=== PATIENT | female | born 1945 | race Caucasian/White ===

== ENCOUNTER 2018-06-23 11:09 | Inpatient (IN) | payer MEDICARE, BC ==
[~2018-06-23] VITALS: Ht 167.6 cm; Wt 86.0 kg
[2018-06-23] VITALS (7 sets, daily range): BP systolic 127–159; BP diastolic 40–79
[~2018-06-23 11:09] MED LIST: ASPI81TA45 PO; ATOR-2 PO; CARV12.52 PO; CARV25TA12 PO; CLOP75TA PO; FERR324T8 PO; ISOS20TA3 PO; LEVO125T5 PO; LISI-167 PO; MAGN250T8 PO; METH4TAB2 PO; PANT40TA5 PO; POTA10TA11 PO
[2018-06-23] MEDS ORDERED: SODIUM CHLORIDE 0.9% 1,000ML IVBOLUS ONE (11:30)
[2018-06-23] MEDS ORDERED: PLEASE ENTER HEIGHT AND WEIGHT MC SCH (11:30)
[2018-06-23] MEDS ORDERED: SODIUM CHLORIDE FLUSH 10ML SYR IVF ONE (11:30)
[2018-06-23] MEDS ORDERED: PANTOPRAZOLE 80 MG in SODIUM CHLORIDE 0.9% 50 ML IVPB ONE (11:40)
[2018-06-23] MEDS ORDERED: PANTOPRAZOLE 80 MG in SODIUM CHLORIDE 0.9% 100 ML IV SCH (11:40)
[2018-06-23 11:47] LABS: BASOPHILS # (AUTO) 0.06 x10^3/uL (0-0.1); BASOPHILS % (AUTO) 1 % (0-1); EOSINOPHILS % (AUTO) 2 % (1-7); LYMPHOCYTES # (AUTO) 2.62 x10^3/uL (1-3.4); LYMPHOCYTES % (AUTO) 21 % (22-44); MD NO; MEAN CORPUSCULAR HEMOGLOBIN 30.3 pg (27.0-34.8); MEAN CORPUSCULAR HGB CONC 33.6 g/dL (32.4-35.8); MEAN CORPUSCULAR VOLUME 90.1 fL (80-100); MEAN PLATELET VOLUME 8.7 fL (7.4-10.4); MONOCYTES # (AUTO) 0.84 x10^3/uL (0.2-0.8); MONOCYTES % (AUTO) 7 % (2-9); NEUTROPHILS # (AUTO) 8.84 x10^3/uL (1.8-6.8); NEUTROPHILS % (AUTO) 70 % (42-75); PLATELET COUNT 238 x10^3/uL (130-400); RED BLOOD COUNT 3.15 x10^6/uL (3.82-5.3); RED CELL DISTRIBUTION WIDTH 13.7 % (9.6-15.2)
--- NOTE | 2018-06-23 11:54 | NUR ---
BEDSIDE REPORT FROM BLANCA LOPEZ, PT CARE ASSUMED AT THIS TIME. PT MOVED TO TRAUMA 3 PER MD SPARKS REQUEST, PT ON ALL MONITORS, FRESH LINENS. PT HAD GROSSLY POSITIVE HEMOCCULT, THIS RN AT BEDSIDE TO GARCIA
[2018-06-23 11:57] LABS: ALANINE AMINOTRANSFERASE 13 U/L (12-78); ALBUMIN 2.4 g/dL (3.4-5.0); ANION GAP 8 mmol/L (5-15); CALCIUM 8.5 mg/dL (8.5-10.1); CHLORIDE 113 mmol/L (98-107); CREATININE 1.15 mg/dL (0.55-1.02)
[2018-06-23 11:58] LABS: ALKALINE PHOSPHATASE 50 U/L (45-117); BILIRUBIN,TOTAL 0.2 mg/dL (0.2-1.0); TOTAL PROTEIN 5.6 g/dL (6.4-8.2)
[2018-06-23] MEDS ORDERED: ONDANSETRON 2MG/ML, 2ML ONE (11:59)
--- NOTE | 2018-06-23 12:07 | NUR ---
MEDICATION ORDERED FROM PHARMACY, RN TO CALL PT'S FAMILY SONAM (PT'S SON): ESTEVAN (SONAM'S GIRLFRIEND):
[2018-06-23 12:17] LABS: INTERNATIONAL NORMALIZED RATIO > 12.00 (0.93-1.1); PROTHROMBIN TIME 119.3 Seconds (9.6-11.5)
--- NOTE | 2018-06-23 12:18 | NUR ---
PT TO CT VIA JONH IN NAD AT THIS TIME
[2018-06-23] MEDS ORDERED: PHYTONADIONE 10 MG/ML, 1ML SQ ONE (12:30)
[2018-06-23] MEDS ORDERED: OMNIPAQUE 350 MG/ML, 100ML BOTTLE ONE (12:30)
[2018-06-23] MEDS ORDERED: WARF1TAB PO (12:44)
[2018-06-23] MEDS ORDERED: WARF3TAB PO (12:44)
[2018-06-23] MEDS ORDERED: ONDANSETRON 2MG/ML, 2ML IVPush ONE (13:30)
--- NOTE | 2018-06-23 13:40 | NUR ---
BREAK NOTE: CHITRA BEDOYA, WITH [facility], AT THE BEDSIDE WITH THE PT. FFP IS INFUSING WITHOUT PROBLEMS. PT. REMAINS MONITORED. PLAN OF CARE DISCUSSED WITH THE PT. HOB REMAINS ELEVATED GREATER THAN 30 DEGREES. PT. HAS THE SIDERAILS UP X 2 AND THE CALL LIGHT IN PLACE. RN REMAINS AT THE BEDSIDE. VSS.
--- NOTE | 2018-06-23 14:14 | NUR ---
ct called to request ETA for pt's head CT, Rodolfo states that pt is next. MD Russo will order admit post head CT. Endo scheduled for 1500, endo provider at bedside to discuss procedure w/ pt. Pt's family called & updated on POC per pt's request. 2nd FFP ordered from blood bank. Pt in bed, nad, no needs at this time. WCTM.
--- NOTE | 2018-06-23 14:23 | NUR ---
PT TO CT IN NAD AT THIS TIME
--- NOTE | 2018-06-23 14:45 | NUR ---
PT RETURNED FROM CT IN NAD, AWAITING ENDOSCOPY PRIOR TO TRANSFER TO FLOOR
[2018-06-23] MEDS ORDERED: PROPOFOL 10 MG/ML, 20ML ONE (14:46)
--- NOTE | 2018-06-23 15:43 | NUR ---
MD LEAL & MD SPARKS, RN STEPHANY HAMMOND & DIOR MOON AT BEDSIDE FOR ENDOSCOPY
--- NOTE | 2018-06-23 15:45 | NUR ---
PT'S LEVEL OF CARE SCHANGED TO MAURICE BASILIO RN NOTIFIED
[2018-06-23] MEDS: SODIUM CHLORIDE 0.9% 1,000 ML IV SCH (15:53)
[2018-06-23] MEDS: INSULIN LISPRO 100 UNITS/ML, PEN SQ-INSULIN SCH ×2 (16:00→20:16)
[2018-06-23] MEDS ORDERED: LABETALOL 5MG/ML, 20ML IVPush PRN (16:00)
[2018-06-23] MEDS ORDERED: ENALAPRILAT 1.25 MG/ML, 2ML IVPush PRN (16:00)
[2018-06-23] MEDS ORDERED: morphine SULFATE 10 MG/ML, 1ML IVPush PRN (16:00)
--- NOTE | 2018-06-23 16:00 | NUR ---
Hold on PRBC per MD Livingston until repeat H&H
--- NOTE | 2018-06-23 16:30 | NUR ---
endoscopy completed without complication, per jeremy Álvarez pt had generalized gastritis and no localized point of bleeding to clamp. pt in bed, NAD, asisted onto and off of the bedpan.
[2018-06-23 16:54] LABS: FREE T4 (FREE THYROXINE) 0.9 ng/dL (0.76-1.46)
[2018-06-23] MEDS ORDERED: CEFTRIAXONE PMX 1GM/50ML 50 ML ONE (17:07)
[2018-06-23] MEDS ORDERED: INSULIN LISPRO 100 UNITS/ML, PEN ONE (17:08)
[2018-06-23] MEDS: CEFTRIAXONE PMX 1GM/50ML 50 ML IV SCH (17:15)
--- NOTE | 2018-06-23 17:30 | NUR ---
report to fredrick Mortensen [facility].
[2018-06-23 18:57] LABS: INTERNATIONAL NORMALIZED RATIO 2.18 (0.93-1.1); PROTHROMBIN TIME 22.2 Seconds (9.6-11.5)
[2018-06-23] MEDS: CARVEDILOL 25 MG TABLET PO SCH (20:03)
[2018-06-23] MEDS: ATORVASTATIN 40 MG TABLET PO SCH (20:03)
[2018-06-23] MEDS: DOXYCYCLINE 100 MG in DEXTROSE 5% 250 ML IV SCH (20:05)
[2018-06-23] MEDS: PANTOPRAZOLE 80 MG in SODIUM CHLORIDE 0.9% 100 ML IV SCH (21:54)
[2018-06-24] VITALS (12 sets, daily range): BP systolic 92–135; BP diastolic 50–75
[2018-06-24 02:32] LABS: MICROSCOPIC AUTO
[2018-06-24 02:38] LABS: CULTURE INDICATED? NO
[2018-06-24 04:30] LABS: ALBUMIN 2.4 g/dL (3.4-5.0); ANION GAP 6 mmol/L (5-15); CALCIUM 7.8 mg/dL (8.5-10.1); CHLORIDE 119 mmol/L (98-107)
[2018-06-24 04:34] LABS: ALANINE AMINOTRANSFERASE 18 U/L (12-78); ALKALINE PHOSPHATASE 42 U/L (45-117); BILIRUBIN,TOTAL 0.3 mg/dL (0.2-1.0); CREATININE 1.04 mg/dL (0.55-1.02); TOTAL PROTEIN 5.2 g/dL (6.4-8.2)
[2018-06-24] MEDS: SODIUM CHLORIDE 0.9% 1,000 ML IV SCH (05:17)
[2018-06-24] MEDS: INSULIN LISPRO 100 UNITS/ML, PEN SQ-INSULIN SCH ×4 (07:00→21:00)
[2018-06-24] MEDS: DOXYCYCLINE 100 MG in DEXTROSE 5% 250 ML IV SCH ×2 (07:19→19:33)
[2018-06-24] MEDS: PANTOPRAZOLE 80 MG in SODIUM CHLORIDE 0.9% 100 ML IV SCH ×2 (08:01→18:02)
[2018-06-24] MEDS: SODIUM CHLORIDE 0.45% 1,000 ML IV SCH (08:02)
[2018-06-24] MEDS ORDERED: LEVOTHYROXINE 125 MCG TABLET PO SCH (09:00)
[2018-06-24] MEDS: LEVOTHYROXINE 150 MCG TABLET PO SCH (09:47)
[2018-06-24] MEDS: CARVEDILOL 25 MG TABLET PO SCH ×2 (09:47→19:53)
[2018-06-24] MEDS: ISOSORBIDE MONONITRATE ER 60 MG TABLET PO SCH (09:47)
[2018-06-24] MEDS: LISINOPRIL 10 MG TABLET PO SCH (09:47)
[2018-06-24] MEDS ORDERED: POTASSIUM CHLORIDE 20 MEQ TAB.ER.PRT PO ONE (10:00)
[2018-06-24] MEDS: ACETAMINOPHEN 325 MG TABLET PO PRN (15:16)
[2018-06-24] MEDS: CEFTRIAXONE PMX 1GM/50ML 50 ML IV SCH (17:17)
[2018-06-24] MEDS: ATORVASTATIN 40 MG TABLET PO SCH (19:53)
[2018-06-25 01:08] VITALS: BP 150/71
[2018-06-25] MEDS: PANTOPRAZOLE 80 MG in SODIUM CHLORIDE 0.9% 100 ML IV SCH ×3 (03:05→23:11)
[2018-06-25] MEDS: SODIUM CHLORIDE 0.45% 1,000 ML IV SCH (03:05)
[2018-06-25 05:25] LABS: BASOPHILS # (AUTO) 0.04 x10^3/uL (0-0.1); BASOPHILS % (AUTO) 1 % (0-1); EOSINOPHILS # (AUTO) 0.33 x10^3/uL (0-0.4); EOSINOPHILS % (AUTO) 5 % (1-7); LYMPHOCYTES # (AUTO) 2.21 x10^3/uL (1-3.4); LYMPHOCYTES % (AUTO) 33 % (22-44); MD NO; MEAN CORPUSCULAR HEMOGLOBIN 30.7 pg (27.0-34.8); MEAN CORPUSCULAR HGB CONC 33.6 g/dL (32.4-35.8); MEAN CORPUSCULAR VOLUME 91.4 fL (80-100); MONOCYTES % (AUTO) 6 % (2-9); NEUTROPHILS # (AUTO) 3.83 x10^3/uL (1.8-6.8); NEUTROPHILS % (AUTO) 56 % (42-75); PLATELET COUNT 174 x10^3/uL (130-400); RED BLOOD COUNT 2.54 x10^6/uL (3.82-5.3)
[2018-06-25 05:38] LABS: ALBUMIN 2.3 g/dL (3.4-5.0); ANION GAP 6 mmol/L (5-15); CHLORIDE 118 mmol/L (98-107)
[2018-06-25 05:41] LABS: ALANINE AMINOTRANSFERASE 16 U/L (12-78); ALKALINE PHOSPHATASE 40 U/L (45-117); BILIRUBIN,TOTAL 0.3 mg/dL (0.2-1.0); CREATININE 1.06 mg/dL (0.55-1.02); TOTAL PROTEIN 5.1 g/dL (6.4-8.2)
[2018-06-25 06:30] VITALS: BP 135/75
[2018-06-25] MEDS: INSULIN LISPRO 100 UNITS/ML, PEN SQ-INSULIN SCH ×4 (07:00→20:25)
[2018-06-25] MEDS: LEVOTHYROXINE 150 MCG TABLET PO SCH (08:26)
[2018-06-25] MEDS: AMOXICILLIN/CLAV 875-125MG TABLET PO SCH ×2 (08:26→20:25)
[2018-06-25] MEDS: DOXYCYCLINE 100MG TABLET PO SCH ×2 (08:27→20:24)
[2018-06-25] MEDS: ISOSORBIDE MONONITRATE ER 60 MG TABLET PO SCH (08:27)
[2018-06-25] MEDS: LISINOPRIL 10 MG TABLET PO SCH (08:27)
[2018-06-25] MEDS: CARVEDILOL 25 MG TABLET PO SCH ×2 (08:27→20:24)
[2018-06-25 09:00] LABS: INTERNATIONAL NORMALIZED RATIO 2.04 (0.93-1.1); PROTHROMBIN TIME 20.8 Seconds (9.6-11.5)
[2018-06-25 12:10] VITALS: BP 138/66
[2018-06-25] MEDS: FERROUS SULFATE 325 MG TABLET PO SCH (16:44)
[2018-06-25 20:00] VITALS: BP 127/77
[2018-06-25] MEDS: ATORVASTATIN 40 MG TABLET PO SCH (20:25)
[2018-06-25] MEDS: ACETAMINOPHEN 325 MG TABLET PO PRN (22:19)
[2018-06-26 02:47] VITALS: BP 116/66
[2018-06-26] MEDS: LEVOTHYROXINE 150 MCG TABLET PO SCH (05:34)
[2018-06-26 06:05] LABS: MEAN CORPUSCULAR HEMOGLOBIN 30.9 pg (27.0-34.8); MEAN CORPUSCULAR HGB CONC 33.8 g/dL (32.4-35.8); MEAN CORPUSCULAR VOLUME 91.5 fL (80-100); MEAN PLATELET VOLUME 8.2 fL (7.4-10.4); PLATELET COUNT 154 x10^3/uL (130-400); RED BLOOD COUNT 2.35 x10^6/uL (3.82-5.3); RED CELL DISTRIBUTION WIDTH 14.3 % (9.6-15.2)
[2018-06-26 06:11] LABS: CHLORIDE 118 mmol/L (98-107)
[2018-06-26 06:30] LABS: ALANINE AMINOTRANSFERASE 19 U/L (12-78); ALBUMIN 2.5 g/dL (3.4-5.0); ALKALINE PHOSPHATASE 45 U/L (45-117); ANION GAP 5 mmol/L (5-15); BILIRUBIN,TOTAL 0.4 mg/dL (0.2-1.0); CALCIUM 8.3 mg/dL (8.5-10.1); CREATININE 1.08 mg/dL (0.55-1.02); TOTAL PROTEIN 5.2 g/dL (6.4-8.2)
[2018-06-26 06:32] LABS: BASOPHILS # (AUTO) 0.03 x10^3/uL (0-0.1); BASOPHILS % (AUTO) 1 % (0-1); EOSINOPHILS # (AUTO) 0.25 x10^3/uL (0-0.4); EOSINOPHILS % (AUTO) 4 % (1-7); LYMPHOCYTES # (AUTO) 1.96 x10^3/uL (1-3.4); LYMPHOCYTES % (AUTO) 32 % (22-44); MD SCAN; MONOCYTES # (AUTO) 0.37 x10^3/uL (0.2-0.8); MONOCYTES % (AUTO) 6 % (2-9); NEUTROPHILS # (AUTO) 3.48 x10^3/uL (1.8-6.8); NEUTROPHILS % (AUTO) 57 % (42-75)
[2018-06-26] MEDS: INSULIN LISPRO 100 UNITS/ML, PEN SQ-INSULIN SCH ×4 (07:41→21:25)
[2018-06-26 08:03] VITALS: BP 113/66
[2018-06-26] MEDS: CARVEDILOL 25 MG TABLET PO SCH ×2 (08:35→21:24)
[2018-06-26] MEDS: SUCRALFATE 1 GM TABLET PO SCH ×4 (08:35→21:25)
[2018-06-26] MEDS: LISINOPRIL 10 MG TABLET PO SCH (08:36)
[2018-06-26] MEDS: DOXYCYCLINE 100MG TABLET PO SCH ×2 (08:37→21:25)
[2018-06-26] MEDS: AMOXICILLIN/CLAV 875-125MG TABLET PO SCH ×2 (08:37→21:24)
[2018-06-26] MEDS: PANTOPROZOLE 40MG TABLET PO SCH (08:37)
[2018-06-26] MEDS: FERROUS SULFATE 325 MG TABLET PO SCH ×2 (08:37→17:07)
[2018-06-26] MEDS: ASCORBIC ACID 500 MG TABLET PO SCH (08:37)
[2018-06-26] MEDS: ISOSORBIDE MONONITRATE ER 60 MG TABLET PO SCH (08:37)
[2018-06-26] MEDS: ACETAMINOPHEN 325 MG TABLET PO PRN ×2 (11:12→19:17)
[2018-06-26 14:14] VITALS: BP 132/66
[2018-06-26] MEDS ORDERED: SODIUM CHLORIDE 0.45% 1,000 ML IV SCH (16:30)
[2018-06-26 18:50] VITALS: BP 145/67
[2018-06-26] MEDS: ATORVASTATIN 40 MG TABLET PO SCH (21:25)
[2018-06-27 02:16] VITALS: BP 125/66
[2018-06-27 03:37] LABS: MEAN CORPUSCULAR HEMOGLOBIN 31.3 pg (27.0-34.8); MEAN CORPUSCULAR HGB CONC 33.6 g/dL (32.4-35.8); MEAN CORPUSCULAR VOLUME 93.1 fL (80-100); MEAN PLATELET VOLUME 8.3 fL (7.4-10.4); PLATELET COUNT 175 x10^3/uL (130-400); RED CELL DISTRIBUTION WIDTH 14.2 % (9.6-15.2)
[2018-06-27 03:41] LABS: CHLORIDE 117 mmol/L (98-107)
[2018-06-27 03:46] LABS: ALANINE AMINOTRANSFERASE 20 U/L (12-78); ALBUMIN 2.5 g/dL (3.4-5.0); ALKALINE PHOSPHATASE 45 U/L (45-117); ANION GAP 5 mmol/L (5-15); BILIRUBIN,TOTAL 0.3 mg/dL (0.2-1.0); CALCIUM 7.9 mg/dL (8.5-10.1); CREATININE 1.05 mg/dL (0.55-1.02); TOTAL PROTEIN 5.2 g/dL (6.4-8.2)
[2018-06-27 04:10] LABS: BASOPHILS # (AUTO) 0.03 x10^3/uL (0-0.1); BASOPHILS % (AUTO) 0 % (0-1); EOSINOPHILS % (AUTO) 5 % (1-7); LYMPHOCYTES % (AUTO) 30 % (22-44); MD SCAN; MONOCYTES # (AUTO) 0.37 x10^3/uL (0.2-0.8); MONOCYTES % (AUTO) 6 % (2-9); NEUTROPHILS # (AUTO) 3.74 x10^3/uL (1.8-6.8); NEUTROPHILS % (AUTO) 59 % (42-75)
[2018-06-27] MEDS: PANTOPROZOLE 40MG TABLET PO SCH (06:11)
[2018-06-27] MEDS: LEVOTHYROXINE 150 MCG TABLET PO SCH (06:11)
[2018-06-27] MEDS: INSULIN LISPRO 100 UNITS/ML, PEN SQ-INSULIN SCH ×3 (07:00→16:00)
[2018-06-27] MEDS: SUCRALFATE 1 GM TABLET PO SCH ×3 (08:11→16:16)
[2018-06-27] MEDS: AMOXICILLIN/CLAV 875-125MG TABLET PO SCH (08:11)
[2018-06-27] MEDS: FERROUS SULFATE 325 MG TABLET PO SCH ×2 (08:11→16:16)
[2018-06-27] MEDS: DOXYCYCLINE 100MG TABLET PO SCH (08:11)
[2018-06-27] MEDS: LISINOPRIL 10 MG TABLET PO SCH (08:11)
[2018-06-27] MEDS: ISOSORBIDE MONONITRATE ER 60 MG TABLET PO SCH (08:11)
[2018-06-27] MEDS: ASCORBIC ACID 500 MG TABLET PO SCH (08:11)
[2018-06-27] MEDS: CARVEDILOL 25 MG TABLET PO SCH (08:12)
[2018-06-27 08:15] VITALS: BP 166/72
[2018-06-27 12:48] VITALS: BP 133/69
[2018-06-27] MEDS ORDERED: AMOX1TAB12 PO (12:54)
[2018-06-27] MEDS ORDERED: DOXY100T PO (12:54)
[2018-06-27] MEDS ORDERED: ASCO500T6 PO (12:54)
[2018-06-27] MEDS ORDERED: PANT40TA5 PO (12:54)
[2018-06-27] MEDS ORDERED: SUCR1TAB33 PO (12:54)
[2018-06-27] MEDS ORDERED: LEVO150T PO (12:54)
[2018-06-27] MEDS ORDERED: PANTOPROZOLE 40MG TABLET PO SCH (21:00)
== END 2018-06-27 17:17 | DRG 377 ==
LOC: ED 12:45 → EDIP 14:21 → 3NE 15:30 → EDIP 17:22 → 4WST 17:59
PROVIDERS: ADMIT Internal Medicine; ATTEND Internal Medicine
PROC: 0DJ08ZZ Inspection of Upper Intestinal Tract, Via Natural or Artificial Opening Endoscopic (ICD-10-PCS; principal; 2018-06-23 14:41)
PROC: 30233K1 Transfusion of Nonautologous Frozen Plasma into Peripheral Vein, Percutaneous Approach (ICD-10-PCS; 2018-06-24)
PROC: 30233N1 Transfusion of Nonautologous Red Blood Cells into Peripheral Vein, Percutaneous Approach (ICD-10-PCS; 2018-06-24)
DX: K29.01 Acute gastritis with bleeding (principal); N17.0 Acute kidney failure with tubular necrosis; J18.9 Pneumonia, unspecified organism; D68.9 Coagulation defect, unspecified; D62 Acute posthemorrhagic anemia; E44.0 Moderate protein-calorie malnutrition; E87.0 Hyperosmolality and hypernatremia; J96.11 Chronic respiratory failure with hypoxia; J44.0 Chronic obstructive pulmonary disease with (acute) lower respiratory infection; E03.9 Hypothyroidism, unspecified; E11.9 Type 2 diabetes mellitus without complications; E78.5 Hyperlipidemia, unspecified; I25.10 Atherosclerotic heart disease of native coronary artery without angina pectoris; I11.0 Hypertensive heart disease with heart failure; I25.2 Old myocardial infarction; I48.0 Paroxysmal atrial fibrillation; I50.9 Heart failure, unspecified; K22.2 Esophageal obstruction; N28.1 Cyst of kidney, acquired; Z79.82 Long term (current) use of aspirin; Z80.52 Family history of malignant neoplasm of bladder; Z86.73 Personal history of transient ischemic attack (TIA), and cerebral infarction without residual deficits; Z90.49 Acquired absence of other specified parts of digestive tract; Z95.5 Presence of coronary angioplasty implant and graft; Z99.81 Dependence on supplemental oxygen; Z68.30 Body mass index [BMI] 30.0-30.9, adult; Z79.01 Long term (current) use of anticoagulants; Z79.899 Other long term (current) drug therapy; M43.12 Spondylolisthesis, cervical region; M46.90 Unspecified inflammatory spondylopathy, site unspecified; Z91.81 History of falling; M54.2 Cervicalgia; I95.9 Hypotension, unspecified
CPT/HCPCS: 36415; 36430; 70450; 71045; 72125; 74177; 80053; 81001; 82962; 83036; 83690; 83735; 84439; 84443; 85014; 85018; 85025; 85610; 86850; 86900; 86923; 93005; 93306; 96372; 99291; G0378; J0696; J2405; J3430; J7060; Q9967; C9113; J7030; P9016; P9017

== ENCOUNTER 2018-10-19 12:10 | Inpatient (IN) | payer MEDICARE, BC ==
[~2018-10-19] VITALS: Ht 162.6 cm; Wt 72.5 kg
[2018-10-22 12:29] VITALS: BP 89/53
== END 2018-10-22 14:45 | DRG 698 ==
LOC: ED 15:15 → EDIP 16:36 → 4EST 17:14
PROVIDERS: ADMIT Internal Medicine; ATTEND Internal Medicine
PROC: 0T9B70Z Drainage of Bladder with Drainage Device, Via Natural or Artificial Opening (ICD-10-PCS; principal; 2018-10-19)
DX: N28.0 Ischemia and infarction of kidney (principal); N17.0 Acute kidney failure with tubular necrosis; E87.2 Acidosis; E87.0 Hyperosmolality and hypernatremia; J96.11 Chronic respiratory failure with hypoxia; K52.9 Noninfective gastroenteritis and colitis, unspecified; I95.9 Hypotension, unspecified; E86.0 Dehydration; E11.9 Type 2 diabetes mellitus without complications; E03.9 Hypothyroidism, unspecified; E11.649 Type 2 diabetes mellitus with hypoglycemia without coma; E78.5 Hyperlipidemia, unspecified; I11.0 Hypertensive heart disease with heart failure; I25.10 Atherosclerotic heart disease of native coronary artery without angina pectoris; I25.2 Old myocardial infarction; I48.0 Paroxysmal atrial fibrillation; I50.9 Heart failure, unspecified; J44.9 Chronic obstructive pulmonary disease, unspecified; N05.9 Unspecified nephritic syndrome with unspecified morphologic changes; Z82.49 Family history of ischemic heart disease and other diseases of the circulatory system; Z86.73 Personal history of transient ischemic attack (TIA), and cerebral infarction without residual deficits; Z95.5 Presence of coronary angioplasty implant and graft
CPT/HCPCS: 36415; 71045; 74176; 80053; 81001; 82150; 82962; 83605; 83690; 84443; 84484; 85025; 87086; 87324; 89055; 93005; 99291; G0378; J1644; J3480; J7030; J7120